=== PATIENT | male | born 1995 | race American Indian/Alaskan Native ===

== ENCOUNTER 2017-03-21 22:34 | Emergency (ER) | payer BC ==
--- NOTE | 2017-03-22 01:51 | Emergency Department Report ---
HPI - General Chief Complaint: Extremity Injury, Lower Time Seen by Provider: 03/22/17 01:46 - HPI HPI: Patient is a 22-year-old male presents to ED complaining of left foot pain started today. Patient states he was on her way to work and was in a parking lot when he got his left foot stuck had been following with leg. Patient states swelling to the foot over the fourth and fifth toe. Patient states pain began shortly after the incident. He admits bleeding on base of small fifth digit . He denies any other symptoms. ED Past Medical Hx - Past Medical History Previous Medical History?: No - Surgical History Past Surgical History?: Yes Additional Surgical History: tubes in ears - Social History Smoking Status: Current Some Day Smoker Substance Use Type: Alcohol - Medications Home Medications: Home Medications Medication Instructions Recorded Confirmed Last Taken Type Cephalexin [Keflex] 500 mg PO BID #10 capsule 03/22/17 Unknown Rx Cyclobenzaprine [Flexeril] 10 mg PO QHS PRN #24 tablet 03/22/17 Unknown Rx Ibuprofen [Motrin] 800 mg PO Q8HR PRN #30 tablet 03/22/17 Unknown Rx ED Review of Systems ROS: Stated complaint: LEFT FOOT INJURY Other details as noted in HPI Constitutional: denies: chills, fever Eyes: denies: eye pain, eye discharge, vision change ENT: denies: ear pain, throat pain Respiratory: denies: cough, shortness of breath, wheezing Cardiovascular: denies: chest pain, palpitations Endocrine: no symptoms reported Gastrointestinal: denies: abdominal pain, nausea, diarrhea Genitourinary: denies: urgency, dysuria Musculoskeletal: denies: back pain, joint swelling, arthralgia Skin: denies: rash, lesions Neurological: denies: headache, weakness, paresthesias Psychiatric: denies: anxiety, depression Hematological/Lymphatic: denies: easy bleeding, easy bruising Physical Exam - Physical Exam Vital Signs: Vital Signs 03/21/17 23:29 Temperature 97.3 F L Pulse Rate 113 H Respiratory 20 Rate Blood Pressure 158/91 O2 Sat by Pulse 99 Oximetry Physical Exam: GENERAL: Alert and oriented x3, no apparent distress, Normal Gait, atraumatic. HEAD: Head is normocephalic and a-traumatic. EYES: Extra ocular muscles are intact. Pupils are equal, round, and reactive to light and accommodation. LUNGS: Symetrical with respiration, No wheezing, no rales or crackles, CTAB. HEART: S1, S2 present, regular rate and rhythm without murmur, no rubs, no gallops. Non tender to palpation EXTREMITIES/MUSCULOSKELETAL: No cyanosis, clubbing, rash, lesions or edema. Full ROM bilaterally. UE/LE Pulses 2+ bilaterally. LE and UE 5+ strength bilaterally. Ankle joints are intact. Swelling over the left lateral aspect of the foot. Tender to palpation. 1 cm laceration on the fifth toe posteriorly. NEUROLOGIC: The patient is cooperative with no focal neurologic deficits. Cranial nerves II through XII are grossly intact. Normal speech. NNormal sensation in bilateral upper extremities, No loss of sensation, SKIN: Warm and dry, No lesions, No ulceration or induration present. ED Course Vital Signs 03/21/17 23:29 Temperature 97.3 F L Pulse Rate 113 H Respiratory 20 Rate Blood Pressure 158/91 O2 Sat by Pulse 99 Oximetry ED Medical Decision Making - Medical Decision Making 22-year-old male presents to ED with foot injury with minor laceration ED course: X-ray of the foot ordered. X-ray the impressions show discussed findings with patient. Digital block was obtained with 2 mL of lidocaine . Wound was cleaned with Betadine. Wound was flushed with about 200 mL of normal saline Laceration was closed with Dermabond. It was then sterilely wrapped Discussed with patient to keep wound dry. Discuss with patient to follow up with primary care physician Vital signs are normal patient is in no acute distress - Differential Diagnosis 1 toe sprain 2. Toe fracture. 3 Critical care attestation.: If time is entered above; I have spent that time in minutes in the direct care of this critically ill patient, excluding procedure time. ED Disposition Clinical Impression: Injury of foot, left, superficial Qualifiers: Encounter type: initial encounter Qualified Code(s): S90.922A - Unspecified superficial injury of left foot, initial encounter Disposition: TO HOME OR SELFCARE Is pt being admited?: No Does the pt Need Aspirin: No Condition: Stable Instructions: Acute Wound Care (ED), Foot Sprain (ED), Absorbable Suture Care ( ED) Additional Instructions: Follow-up with primary care physician. Keep foot dry sign Prescriptions: Cyclobenzaprine [Flexeril] 10 mg PO QHS PRN #24 tablet PRN Reason: Muscle Spasm Cephalexin [Keflex] 500 mg PO BID #10 capsule Ibuprofen [Motrin] 800 mg PO Q8HR PRN #30 tablet PRN Reason: Pain Referrals: PRIMARY CARE, [Primary Care Provider] - 3-5 Days [facility] [Outside] - 3-5 Days [facility] [Outside] - 3-5 Days [facility] [Outside] - 3-5 Days Forms: Accompanied Note, Work/School Release Form
[2017-03-22] MEDS ORDERED: XYLOCAINE 1% MPF 5 mL INFILTRATI ONE (01:58)
--- NOTE | 2017-03-22 02:01 | XRay Report ---
FINAL REPORT EXAM: XR FOOT 3 LT HISTORY: LT FOOT injury TECHNIQUE: 3 views of left foot. PRIORS: None. FINDINGS: Somewhat serpiginous, transverse lucency in little toe distal phalanx may be posttraumatic versus developmental. No other acute fracture or dislocation. Remainder of osseous and soft tissue structures grossly unremarkable. IMPRESSION: 1. Posttraumatic change versus developmental variant in left little toe distal phalanx, age indeterminate. Correlate clinically. 2. No other acute osseous abnormality.
[2017-03-22] MEDS ORDERED: FLEXERIL PO ONE (02:10)
[2017-03-22] MEDS ORDERED: MOTRIN PO ONE (02:10)
[2017-03-22] MEDS ORDERED: NACL 0.9% 500 ML IR ONE (02:31)
[2017-03-22] MEDS: NACL 0.9% 500 ML IRRIGATION ONE ×2 (02:36→03:14)
[2017-03-22] MEDS ORDERED: TRIPLE ANTIBIOTIC TP ONE (02:54)
[2017-03-22] MEDS ORDERED: NACL 0.9% IR ONE (03:15)
[2017-03-22 03:34] VITALS: BP 117/72
== END 2017-03-22 03:35 | disposition home or self-care (01) ==
LOC: ED 22:34
DX: S91.312A Laceration without foreign body, left foot, initial encounter (principal); S90.922A Unspecified superficial injury of left foot, initial encounter; W22.8XXA Striking against or struck by other objects, initial encounter; Y93.9 Activity, unspecified; Y92.9 Unspecified place or not applicable; Y99.9 Unspecified external cause status
CPT/HCPCS: 99283; A6250